=== PATIENT | female | born 2000 | race Caucasian/White ===

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

== ENCOUNTER → 2020-08-16 | Outpatient (REF) | payer BC | LOC: M SFHCWAGY 17:02 | PROVIDERS: ATTEND Nurse Practitioner Women's Health | DX: Z11.3 Encounter for screening for infections with a predominantly sexual mode of transmission (principal) ==

== ENCOUNTER → 2020-11-05 | Outpatient (REF) | payer BC ==
[2020-11-08 13:31] LABS: CHLAMYDIA DNA AMPLIFICATION NEGATIVE (NEGATIVE); GC DNA AMPLIFICATION NEGATIVE (NEGATIVE)
== END ==
LOC: M SFHCWAGY 09:42
PROVIDERS: ATTEND Nurse Practitioner Women's Health
DX: R35.0 Frequency of micturition (principal); Z11.3 Encounter for screening for infections with a predominantly sexual mode of transmission

== ENCOUNTER → 2023-06-22 | Outpatient (REF) | payer BC | LOC: M SFHCWAGY 12:47 | PROVIDERS: ATTEND Nurse Practitioner Family | DX: Z12.4 Encounter for screening for malignant neoplasm of cervix (principal) ==

== ENCOUNTER → 2025-05-20 | Outpatient (CLI) | payer BC | LOC: M WHC 08:14 | PROVIDERS: ATTEND Nurse Practitioner Family | DX: N63.32 Unspecified lump in axillary tail of the left breast (principal) ==

== ENCOUNTER → 2025-06-24 | Outpatient (CLI) | payer BC ==
[2025-06-24 07:53] VITALS: TEMP 98.5
[2025-06-24 09:05] VITALS: BP 124/70; O2SAT 100
== END ==
LOC: M WHCPRO 07:39
PROVIDERS: ATTEND Nurse Practitioner Family
DX: N63.21 Unspecified lump in the left breast, upper outer quadrant (principal); R92.8 Other abnormal and inconclusive findings on diagnostic imaging of breast

== ENCOUNTER → 2025-07-02 | Outpatient (CLI) | payer BC | LOC: M WHC 12:23 | PROVIDERS: ATTEND Nurse Practitioner Family | DX: R92.8 Other abnormal and inconclusive findings on diagnostic imaging of breast (principal); Z53.9 Procedure and treatment not carried out, unspecified reason ==